=== PATIENT | female | born 1955 | race Caucasian/White ===

== ENCOUNTER 2022-08-16 08:08 | Day surgery (SDC) | payer OTHER, SELFPAY ==
[2022-08-07 13:35] VITALS: BMI 38.2
[2022-08-16] VITALS (18 sets, daily range): BP systolic 122–157; BP diastolic 64–92; PULSE 73–93; RESP 12–17; TEMP 36.1–37.2; O2SAT 92–100; BMI 38.2
--- NOTE | 2022-08-16 06:00 | DI.RAD.S_ITS ---
PROCEDURE: XR KNEE RT 1TO2V INDICATIONS: Postop TECHNIQUE: 2 view(s) of the knee acquired. COMPARISON: [facility] MANJIT Mendoza, XR KNEE ARTHRITIC SERIES BI, 06/19/2022, 11:23. FINDINGS: Bones: Patient is status post knee joint arthroplasty. Hardware components are in expected positions. Visualized bony structures are intact. Soft tissues: Overlying postoperative changes are noted. IMPRESSION: Expected postsurgical changes. Dictated by: Miguel Isidro M.D. on 08/16/2022 at 14:07 Approved by: Miguel Isidro M.D. on 08/16/2022 at 14:08
[2022-08-16] MEDS: ACETAMINOPHEN 325 MG TABLET 975 MG PO (09:05)
[2022-08-16] MEDS: CELECOXIB 200 MG CAPSULE PO (09:07)
[2022-08-16] MEDS: PREGABALIN 75 MG CAPSULE PO (09:07)
[2022-08-16 09:23] LABS: COVID19 -Nasal RAPID Negative (Negative)
[2022-08-16] MEDS: LACTATED RINGERS 1,000 ML 42 ML IV (09:55)
--- NOTE | 2022-08-16 10:02 | PM.PREOP ---
Pre-operative Note Interval Note History & Physical reviewed/Exam performed by Physician: Yes Changes to H&P: No
[2022-08-16] MEDS: CEFAZOLIN 2 GM/100 ML PREMIX 100 ML IV ×2 (10:45→18:52)
[2022-08-16] MEDS: TRANEXAMIC ACID 1,000 MG VIAL 1000 MG INJ ×2 (10:50→12:00)
[2022-08-16] MEDS: BUPIVACAINE LIPOSOME 266 MG/20 ML VIAL INJ (11:04)
[2022-08-16] MEDS: BUPIVACAINE 0.25% (PF) 60 ML, EPINEPHrine 0.3 MG INJ (11:05)
[2022-08-16] MEDS: MORPHINE 4 MG/ML INJ INJ (11:05)
--- NOTE | 2022-08-16 11:12 | SUR.OPER ---
Supine on padded OR bed. Pillow under head, arms secured on padded armboards <90 degree abduction. Safety belt across torso. Non-operative leg secured with tape over blanket over lower leg. Operative leg secured in DeMayo/Osmin/Nathe positioner. Foam padded brace at thigh of operative leg.
--- NOTE | 2022-08-16 12:19 | P.OP_ITS ---
Operative Date/Time/Diagnoses Date of procedure: 08/16/22 Time of procedure: 12:19 Pre-op diagnosis: Right knee osteoarthritis Post-op diagnosis: same Procedure & Clinicians Procedure: Right total knee replacement Same procedure as scheduled: Yes Indications: The patient has had progressively worsening right knee pain with radiographic changes consistent with arthritis. Non-operative management has failed and the patient has requested total knee replacement. The risks, benefits and alternatives to surgery were discussed with the patient prior to proceeding. Risks discussed included, but were not limited to, failure to relieve pain, stiffness, infection, nerve damage, deep venous thrombosis, pulmonary embolism, stroke, coma, heart attack, permanent paralysis and , as well as the potential need for eventual revision of the prosthetic. Surgeon: Syd Aldridge Business Services Officer: Mirian Arteaga Click Yes if Unassisted: No Anesthesia Type: General, Spinal and Local Operative Notes Findings: Severe tricompartmental osteoarthritis. Closure Type: primary Specimen(s): none sent Prosthetic devices, grafts, tissues, transplants, or devices: Implants used in this procedure were manufactured by the [employer] and [employer] and included the BCS II Journey total knee replacement with a size 4 Oxinium femur, a size 3 non porous tibial base plate, a 10 mm cross-linked polyethylene insert and a 32 mm oval Ellen II patella. Applied: implant(s) Estimated Blood Loss (mL): 50 Blood products transfused: none Tourniquet time (min): 53 Procedure in detail: The patient was seen in the pre-operative area, where the patient identified the right knee as the operative site and this was marked with my initials. The patient received pre-operative antibiotics, and was taken to the operating room and placed on the operative table in the supine position. After satisfactory anesthesia, a full stack software developer out was performed. The right leg was encircled with a tourniquet about the proximal thigh, and the leg was prepared from the toes to the tourniquet with ChloroPrep in the usual fashion and draped through sterile drapes. The leg was elevated and exsanguinated with Eschmark bandage and the tourniquet inflated to 250 mmHg pressure. The knee was approached through an approximately 18 cm incision centered over the patella and carried into the knee through a medial parapatellar arthrotomy. The anterior osteophytes and soft tissues were removed. The rotational landmarks of Xiomara's line and the transepicondylar axis were marked on the femur with electrocautery, and intramedullary guide holes for the femur and tibia were created. The distal femoral cut was made in 6 degrees of valgus using the intramedullary guide at the primary cut setting. The proximal tibial cut was then made using the intramedullary guide, taking 9 mm of bone off the less involved side. The extension gap was checked and the rotation of the femoral c omponent confirmed with the gap balancing system. The anterior, posterior and chamfer cuts were then made. The posterior osteophytes and soft tissues were then removed. The posterior capsule was injected with part of a mixture of 60 ml 0.25% Marcaine mixed with 20 ml Exparel and 4 mg of morphine for post-operative pain control. The remainder of this mixture was injected into the capsule and subcutaneous tissues during cement curing. The tibia was prepared with the rotation set by an extra medullary guide. Trial tibial and femoral components were then placed and the intercondylar notch cut through the femoral trial. Range of motion was 0-135 degrees, with good stability throughout the range. The patella was then cut to accommodate the patellar prosthetic. There was no need for a lateral release. The trials were then removed, and the femoral hole plugged with a bone plug. The bone was prepared with pulsatile lavage, and dried with a sponge. Cement was applied and the final prosthetics placed. Excess cement was removed during and after cement curing. After confirming there was no extruded cement posteriorly, the final tibial insert was placed. The knee was copiously irrigated and the tourniquet deflated. Hemostasis was obtained. The capsule was closed with interrupted # 2 polyester suture. The subcutaneous layer was closed with 3-0 Vicryl, and the skin with a running 3-0 V-Lock suture and Dermabond. A Derrek dressing was applied and the patient was taken to recovery having tolerated the procedure well. The services of a skilled promotions assistant were required during the surgery to provide positioning, exposure and retraction to protect vital structures. Without the services of Ms. Arteaga, the procedure could not have been completed in a safe, expedient fashion. Complications: none Post-operative Condition: stable Disposition: PACU Plan for aftercare: The patient will be maintained on a standard total knee replacement protocol with weight bearing as tolerated. The patient will receive aspirin and sequential compression devices for DVT prophylaxis. The patient will be discharged home when safe for the home environment.
[2022-08-16] MEDS: OXYCODONE IR 5 MG TABLET PO ×3 (13:00→21:59)
[2022-08-16] MEDS: hydrOXYzine pamoate 25 MG CAPSULE PO (13:00)
--- NOTE | 2022-08-16 13:43 | SUR.PHASEI ---
Called for reprot 13:09. Nurse unavailable. Asked to call back in 30 mins. Given report at 12:39 to JIN Galaviz. Pt ready for transfer. Bed not ready.
--- NOTE | 2022-08-16 14:37 | PC.NURSE ---
Pt arrived to the unit at 1428, VSS, A&Ox4, oriented to the room and call ruiz. CSM intact at bilaterally in feet and ankles, good cap refill less than 2 seconds and strong pulses, pt is unable to lift her R leg at this time and sensation is intact, unable to dressing at this time due to dressing covered by HINA wrap. Pt is resting comfortably.
[2022-08-16] MEDS: LACTATED RINGERS 1,000 ML 100 ML IV (14:48)
[2022-08-16] MEDS: OXYCODONE IR 10 MG TABLET PO ×2 (15:50→18:52)
[2022-08-16] MEDS: ACETAMINOPHEN 325 MG TABLET 650 MG PO (17:58)
[2022-08-16] MEDS: ONDANSETRON 4 MG/2 ML INJ IV (17:59)
[2022-08-16] MEDS: ASPIRIN EC 81 MG TABLET PO (21:56)
[2022-08-16] MEDS: DOCUSATE 100 MG CAPSULE PO (21:57)
[2022-08-17] MEDS: ACETAMINOPHEN 325 MG TABLET 650 MG PO ×3 (00:21→11:41)
[2022-08-17 02:00] VITALS: BP 107/57; PULSE 92; RESP 15; TEMP 37.1; O2SAT 90
[2022-08-17] MEDS: CEFAZOLIN 2 GM/100 ML PREMIX 100 ML IV (03:29)
[2022-08-17 06:22] VITALS: BP 124/65; PULSE 80; RESP 17; TEMP 36.8; O2SAT 94
[2022-08-17 06:27] LABS: Hematocrit 30.2 % (36-46); Hemoglobin 10.2 g/dL (12.0-16.0)
[2022-08-17] MEDS: OXYCODONE IR 5 MG TABLET PO (08:35)
[2022-08-17 08:36] VITALS: BP 130/65; PULSE 85
[2022-08-17] MEDS: LOSARTAN 25 MG TABLET PO (08:36)
[2022-08-17] MEDS: MELOXICAM 7.5 MG TABLET PO (08:36)
[2022-08-17] MEDS: ASPIRIN EC 81 MG TABLET PO (08:37)
[2022-08-17] MEDS: polyethylene glycoL 3350 17 GM POWD.PACK PO (08:37)
[2022-08-17] MEDS: DOCUSATE 100 MG CAPSULE PO (08:37)
[2022-08-17 08:41] VITALS: BP 130/65; PULSE 85; RESP 18; TEMP 36.6; O2SAT 95
--- NOTE | 2022-08-17 08:48 | P.DS_ITS ---
History of Present Illness History of Present Illness Date Patient Seen: 08/17/22 Time Patient Seen: 08:48 Chief complaint: Knee pain Narrative: The pain has been [id number]. Denies fever or chills. No nausea vomiting. Patient has assistance at home. Discharge Providers Provider Discharge Date: 08/17/22 Primary care physician: GENNY Villela Consults: 08/16/22 14:22 Consult to Discharge Planning Routine Comment: Consult to Physical Therapy Evaluate & Treat Comment: Physician Instructions: postop TKA protocol Discharge provider: Cliff Pascal PA-C Summary Hospital Course Discharge Diagnosis: Right knee osteoarthritis Hospital Course: Right total knee replacement Same procedure as scheduled: Yes Indications: The patient has had progressively worsening right knee pain with radiographic changes consistent with arthritis. Non-operative management has failed and the patient has requested total knee replacement. The risks, benefits and altern atives to surgery were discussed with the patient prior to proceeding. Risks discussed included, but were not limited to, failure to relieve pain, stiffness, infection, nerve damage, deep venous thrombosis, pulmonary embolism, stroke, coma, heart attack, permanent paralysis and , as well as the potential need for eventual revision of the prosthetic. Surgeon: Syd Aldridge Repair Department Manager: Mirian Arteaga Click Yes if Unassisted: No Anesthesia Type: General, Spinal and Local Operative Notes Findings: Severe tricompartmental osteoarthritis. Closure Type: primary Specimen(s): none sent Prosthetic devices, grafts, tissues, transplants, or devices: Implants used in this procedure were manufactured by the [employer] and [employer] and included the BCS II Journey total knee replacement with a size 4 Oxinium femur, a size 3 non porous tibial base plate, a 10 mm cross-linked polyethylene insert and a 32 mm oval Ellen II patella. Applied: implant(s) Estimated Blood Loss (mL): 50 Blood products transfused: none Tourniquet time (min): 53 Patient admitted to the hospital for right total knee replacement. Patient consented to the same. Patient taken operating room underwent right total knee arthroplasty on August 16, 2022. Patient back in her room recovering well as in stable condition. Patient will be discharged home today after physical therapy if safe for home environment. Status at Discharge Cognitive/behavioral status at discharge: at baseline, oriented Functional status at discharge: uses cane/walker Overall status at discharge: patient is progressing back to baseline Exam Vital Signs (past 8 hours): - 08/17/22 02:00 08/17/22 06:22 08/17/22 08:36 Temperature 98.8 F 98.3 F Pulse Rate 92 H 80 85 Respiratory Rate 15 17 Blood Pressure 107/57 L 124/65 130/65 Pulse Oximetry 90 L 94 Oxygen Flow Rate 0 0 08/17/22 08:41 Temperature 97.9 F Pulse Rate 85 Respiratory Rate 18 Blood Pressure 130/65 Pulse Oximetry 95 Oxygen Flow Rate 0 Oxygen Delivery Method Room Air Oxygen Flow Rate 0 Narrative Exam Narrative: 67-year-old female resting comfortably in bed in no apparent distress. Derrek dressing is on and functioning. Dressing is clean, dry and intact. Motor functions intact bilateral lower extremities. Sensation grossly intact to light touch bilateral lower extremities. Const General: healthy appearing and comfortable Nutritional Appearance: well nourished Orientation: alert Resp Effort & Inspection: normal respiratory effort and able to speak in complete sentences Objective Labs 08/17/22 05:55 Labs: Laboratory Results - last 24 hr 08/16/22 08/17/22 08:45 05:55 Hgb 10.2 L Hct 30.2 L SARS-CoV-2 (PCR) Negative PENDING SALE TO [facility] Medical History Acid reflux COVID-19 virus infection (~2020) HTN (hypertension) Osteoarthritis Osteoporosis Sensitive skin Varicose vein of leg Surgical History Hx of removal of cyst Social History household members: spouse Smoking Status: Former smoker alcohol intake: never Discharge Assessment & Plan Assessment and Plan Assessment: Patient progressing as expected status post right total knee replacement Plan of Treatment: Weight-bearing as tolerated Patient will be maintained on a standard total knee replacement protocol Multimodal pain management Discharge home today after physical therapy if safe for home environment. Discharge Plan Discharge Plan Patient Disposition: Home Discharge orders & Medications Discharge Orders: Discharge (Order); Ordered 08/17/22 Ordered By: Cliff Pascal Prescriptions: New acetaminophen 325 mg Tablet 650 mg PO Q6HR Qty: 60 0RF aspirin 81 mg Tablet,Delayed Release (Dr/Ec) 81 mg PO BID Qty: 60 0RF meloxicam 7.5 mg Tablet 7.5 mg PO DAILY Qty: 30 0RF docusate sodium 100 mg Capsule 100 mg PO BID Qty: 20 0RF oxycodone 5 mg Tablet 5 mg PO Q3HR PRN (Reason: Pain, Moderate (4-6)) Qty: 40 0RF Continued meloxicam 7.5 mg Tablet 7.5 mg PO DAILY Patient Comments: Pt has not started this med yet losartan 25 mg Tablet 25 mg PO DAILY Follow up/Referrals: Charleen Taveras ARNP [Primary Care Provider] - Syd Aldridge MD [Physician] - As previously scheduled (10-14 days for postoperative visit) Diet/Activity/Treatments Diet: Diet as Tolerated Other treatments: Dressing/Wound care: -Remove the Mikey wrap 48 hours after surgery. -Keep Derrek dressing in place until postoperative follow-up office visit. The Derrek battery/pump should last for 7 days from surgery. Once the pump stops, please cut off hose at base of dressing and cover with a bandaid/part of a dressing from Derrek package. The monitor can be thrown away and recycle the batteries. Leave the remaining dressing in place. -Derrek info: The Derrek dressing provides suction known as negative pressure wound therapy, which draws out excess fluid from the wound and protects the incision. It also helps to prevent bacteria from entering the wound or incision. -Okay to shower. Keep wound out of direct water stream. No soaking or submerging until all the scabs fall off (approximately 4-6 weeks). -No lotions, ointments, or scar creams directly to the incision until the wound is healed (4-6 weeks). No soaking or submerging until all the scabs are gone (usually 4-6 weeks). -Bruising is relatively normal and can show up 1-10 days after surgery, and can travel down to your foot or ankle. This is expected after surgery, but can be painful. -Please call the office if dressing becomes wet, soiled, or saturated. Activities: -Weight-bearing as tolerated. Use front wheeled walker, and progress to cane when safe. -Walk frequently: approximately 5-10 minutes every hour. -Continue with home exercises as directed by your physical therapist. -Elevate ?toes above the nose if you have significant swelling in your lower leg. (A wedge pillow is easiest.) -Ice your incision as needed for pain/inflammation/swelling. Protect your skin with a folded pillowcase. -Incentive Spirometer (breathing device from hospital): 5-10xs every hour while awake for the first 1-2 weeks. Follow-up: -Follow-up with your surgeon or PA in the office in 10-14 days after surgery. -Follow-up with your surgeon 6 weeks postoperatively. Call the office if you have chest pain, shortness of breath, significant swelling that will not resolve with elevating, fever over 101?, significantly worsening pain, or are concerned you might need to go to the Emergency Room. [facility]: [phone] Skin/Wound/Dressing Care Report to your healthcare provider any signs of infection, such as:: chills, fever, night sweats, unusual drainage and unusual redness Visit Report/Discharge Packet Instructions: DI for Knee Replacement Stand Alone Forms: Patient Portal/API, Surgery Discharge Discharge Data Primary Care Provider: Charleen Taveras Attending Provider: Syd Aldridge Quality VTE Deep Vein Thrombosis/Pulmonary Embolism Present on Admission: No
--- NOTE | 2022-08-17 11:31 | CM.DANOTE ---
Patient is a 67 yo female who was admitted on 08/16/22 for RTKA. Pt has REG PPO for insurance and her PCP is Charleen Taveras. EMR was reviewed. Per Ortho PA, pt tolerated procedure well and pain seems managed and to work with PT this morning and then likely d/c home later today. PT pending for likely 1030. SW met bedside with pt and her brother and explained role and pt confirms she lives in [facility] with her spouse who she is the caregiver for but they currently have hired two caregivers to assist while pt recovering from surgery. Pt is typically independent with ADL's, does not use DME for ambulation, and denies any hx of HH or SNF for herself but states that spouse has had [facility] in the past and feels they are helpful. Pt states she is set up with outpt PT through [facility] outpt and has first session this next week. Brother confirms he plans to provide transport home and can assist as needed as well. Pt and brother do not anticipate any needs at d/c but awaiting PT eval to confirm. Plan: SW to follow after PT eval and recommendations towards confirming safe plan of home via brother POV and outpt PT and any further identified discharge planning needs. GYPSY Jackson Discharge Planning/Care Management CM Discharge Assessment Start: 08/17/22 11:23 Freq: Status: Active Protocol: Document 08/17/22 11:24 BF (Rec: 08/17/22 11:28 [id number]) Discharge Planning Assessment Assigned Party Host/Hostess GYPSY Jenkins DPOA/Assigned Designee Name spouse and brother Advance Directives? Yes Advance Directives on File No History Provided By Patient,Family Member,Medical Record Has Patient been admitted in last 30 No days? Prior Living Arrangements House Household Members spouse Type of transporation used prior to Drives own vehicle admit Independent with ADL's Yes Is patient alert and oriented? Yes Caregiver for Another Yes: spouse Community Services used prior to Physical Therapy admission: DME Already Rented / Owned FWW / Walker Patient/Family Preference OP PT Therapy Barriers to Discharge No Discharge Plan Home Community Services Physical Therapy Transportation Arrangement Brother to provide transport Referrals Initiated None needed Whiteboard Updated in Patient Room with Yes name and ext. # of Party Host/Hostess Review Status In Process Please Provide Date Initial DC 08/17/22 Assessment Was Performed Next Review Type Continued Stay Review Pre-Anesthesia Assessment Start: 08/07/22 13:35 Freq: Status: Active Protocol: Document 08/07/22 13:35 CAB (Rec: 08/07/22 14:24 CAB [id number]) Pre-Anesthesia Assessment Patient Information Reviewed Via Phone Assessment Assessment Completed With Patient Comment Labs/EKG done per pt, not here Primary Care Provider Charleen Taveras Seen Specialist in Last 12 Months Yes Specialist Seen Orthopedist Primary Language Mongolian Physician Asst Required No Height 155.58 cm Weight 92.533 kg Body Mass Index (BMI) 38.2 Hearing Ability Normal Visual Assist Glasses Dentition Type Teeth, Natural Present Barriers to Learning None Hx Anesthesia Reactions No Hx Family Anesthesia Reaction No Hx Malignant Hyperthermia No Hx Blood Transfusions No Anesthesia Review Requested No 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 No Does patient have MARINELLI/SOB No Hx Sleep Apnea No Currently Taking a Beta Jass No Can You Climb a Flight of Stairs Without Yes SOB Hx Chest Pain No Hx SOB No Hx Syncope or Dizziness No Anti-Coagulant Therapy No Has a Customs Guard No Cardiac Testing No Hx Pacemaker/ICD No Pacemaker Rep Required? No Diet Type At Home Regular Dysphagia No Gastrointestinal Symptoms Reflux Chronic UTI No Urinary Catheter Present No Hx Urinary Self Catheterization No Diabetes No Patient No Lactating No Hx Drug Resistant Organism No Presence of External or Internal Medical No Devices Have you had any close contact with No someone diagnosed with COVID-19? Received a COVID vaccine? Yes Received all doses? Yes Marital Status Lives With spouse Current Living Arrangements House Number of Floors (Floors) One Floor Support System Sibling(s),Spouse Does the Patient Have Assistance After Yes: Brother will also assist Surgery with care at [place] Patient Discharge Plan Description Return Home Comment Pt advised 1-3 day length of stay per surgeon Feels Safe in Current Environment Yes Been Physically Hurt or Threatened By a No Person in Current Environment Do you have thoughts of harming yourself None or others? Are you currently considering suicide? No Do you have a plan to hurt yourself or No Plan others? Do You Have Any Spiritual Beliefs That No May Affect Your HC Choices? Do You Have Any Cultural Practices That No May Affect Your HC Choices? Comment Yazidism Who Can We Speak to About Patient's Care Family, friends Identifying Code for Release of Patient Declines to issue Information Health Care Proxy/Next of Kin Gonzalo Cruzson) Sim (sandy) Health Care Proxy Phone Number Gonzalo: [phone] Sim: [phone] Emergency Contact Name Gonzalo Cruzson) Sim (son) Emergency Contact Phone Number Gonzalo: [phone] Sim: [phone] Advance Directives? Yes Advance Directives on File No Requested Patient Bring Advanced Yes Directives DOS Power of Hose Tester Yes Power of Hose Tester Name Gonzalo Cruzson) Sim (sandy) Power of Hose Tester Phone Number Gonzalo: [phone] Sim: [phone] PAC Instructions Do not shave/clip surgical site,Durable medical equipment ,Medications to take/avoid, Nasal antibiotic,No ETOH/ petroleum product on skin DOS, NPO,Pre-surgical wash,Sturdy shoes/comfortable clothes,Do not bring valuables and remove jewelry
--- NOTE | 2022-08-17 12:57 | PT.IIE ---
Current Diagnoses Unilateral primary osteoarthritis, right knee (08/16/22) Surgery Performed Operation Date: 08/16/22 10:15 Actual Procedures p Total Knee Arthroplasty(Right) - Syd Aldridge MD Surgical History (Last Reviewed 08/17/22 @ 08:50 by Cliff Pascal PA-C) Hx of removal of cyst Medical History (Last Reviewed 08/17/22 @ 08:50 by Cliff Pascal PA-C) Acid reflux COVID-19 virus infection (~2020) HTN (hypertension) Osteoarthritis Osteoporosis Sensitive skin Varicose vein of leg Physical Therapy Inpatient Evaluation/Re-Eval M1 PT/OT-IP Prior Functional Status Start: 08/17/22 07:32 Freq: NEEDED Status: Discharge Protocol: Document 08/17/22 12:49 SAK (Rec: 08/17/22 12:57 [facility] [id number]) Medical Review Prior Functional Status Medical History Reviewed Yes Diet/Fluid Consistency Regular Communication A and O x 4 Mobility and Gait modifiedindependent Activities of Daily Living and IADL's modified indep Social History Household Members spouse Living Arrangements House Number of Floors (Floors) One Floor Number of Stairs To Enter/Railing? ramp Home Environment Standard Height Toilet,Walk in Shower,Ramp Home Equipment Front Wheel Walker,Bedside Commode,Hand Held Shower Employment Status Manager Medical Employed Additional Social History Comment has 6 weeks off M2 PT-IP Current Condition Start: 08/17/22 07:32 Freq: NEEDED Status: Discharge Protocol: Document 08/17/22 12:49 SAK (Rec: 08/17/22 12:57 [facility] [id number]) Physical Therapy Current Condition Current Condition Evaluation Date 08/17/22 Treatment Diagnosis s/p right TKA Onset Date 08/16/22 M3 PT-IP Subjective Start: 08/17/22 07:32 Freq: NEEDED Status: Discharge Protocol: Document 08/17/22 12:49 SAK (Rec: 08/17/22 12:57 [facility] [id number]) Subjective Physical Therapy Visit Type Type Initial Evaluation Visit Start Time 10:35 Visit Stop Time 11:10 Total Visit Minutes 35 Physical Therapy Visit Comments Patient Comments willing to work with PT. Hoping to go home today. Brother in room, disabled but has caregiver. Brother and sons will be helping patient at home Patient Goals be discharged home Therapy Pain Assessment Pain When Pain Assessed During Mobility Pain Present Pain Present Pain Reported FLACC Pain Scale Face Occasional grimace/frown Location Right Knee Intensity 5 M4 PT-IP Mobility and Gait Start: 08/17/22 07:32 Freq: NEEDED Status: Discharge Protocol: Document 08/17/22 12:49 [facility] (Rec: 08/17/22 12:57 [facility] [id number]) PT-Transfer Assessment Sit to and From Stand Sit to and from Stand Contact Guard Assistance Equipment Transfer Assistive Device Gait Belt,Front Wheeled Walker Orthotic/Prosthetic Devices or Brace: No Transfers Transfer Technique sit to stand from chair, patient preference was chair after PT Transfer Ability Level of Assist Standby Assistance,Contact Guard Assistance Comments Mobility Comments cues for placement of hands and right LE Gait Assessment Gait Gait Assistance Required: Contact Guard Assist Distance (Feet) 40 Able to Maintain Weight Bearing Status Yes During Gait Assistive Devices Assistive Device Front Wheeled Walker Gait Deviations General Gait Pattern Antalgic Factors Limiting Gait Function Factors Limiting Gait Function Decreased Strength,Pain Stair Climbing Assessment Comments Stair Climbing Comments no stairs at home PT-Balance Assessment Sitting Balance and Reactions Static Sitting Balance Ability Good Dynamic Sitting Balance Ability Good Standing Balance and Reactions Static Standing Balance Ability Good Dynamic Standing Balance Ability Fair M5 PT-IP Objective Assessments Start: 08/17/22 07:32 Freq: NEEDED Status: Discharge Protocol: Document 08/17/22 12:49 [facility] (Rec: 08/17/22 12:57 [facility] [id number]) Orientation Orientation/Cognition Level of Alertness Alert Orientation Name,Age,Place,Situation Safety Awareness Understands Safety Issues Memory Description No Deficits Noted Gross Range of Motion Upper Extremity ROM Assessment Within Functional Limits Lower Extremity ROM Assessment Within Functional Limits Strength Upper Extremity Strength Assessment Within Functional Limits Comments Strength Comments mod assist SLR, min assist SAQ Coordination Assessment Gross Coordination Gross Coordination WNL Sensation Assessment Sensation Gross Sensation Right LE Impaired Sensation Description Pain M6 PT-IP Treatment Start: 08/17/22 07:32 Freq: NEEDED Status: Discharge Protocol: Document 08/17/22 12:49 [facility] (Rec: 08/17/22 12:57 [facility] [id number]) Physical Therapy Treatment Exercises Exercises Ankle Pumps,Quad Sets,Heel Slides,Straight Leg Raises, Short Arc Quads,Passive Knee Extension Hang,Seated Knee Flexion/Extension Education Education Provided Precautions,Weight Bearing Status,Post-Op Packet,Safety M7 PT-IP Assessment and Plan Start: 08/17/22 07:32 Freq: NEEDED Status: Discharge Protocol: Document 08/17/22 12:49 FABIAN (Rec: 08/17/22 12:57 [facility] [id number]) PT Summary Assessment and Plan Potential Rehabilitation Potential Good Status of Condition at Evaluation Evolving Summary Impairments Pain,ROM,Strength,Bed Mobility ,Transfers,Gait,Activity Tolerance Assessment Summary Patient s/p right TKA with typical post-op limitations in ROM and strength, gait and mobility skills. SBA to CGA for all mobility done this am. Has no stairs in the home and has ramp to enter. Brother present in room and has had prior TKA x 2; he and patient sons will both be available to assist in the home. Goals Other Goals NA, patient cleared for discharge home with assist of family Frequency of Treatment Frequency Of Treatment Discharge Weight Bearing Status Weight Bearing Status Weight Bear as Tolerated Recommendations To Nursing Amount of Assist Needed 1 Person Assist Discharge Recommendations PT Discharge Recommendations Home with Assistance, Outpatient PT Other Discharge Recommendations outpatient PT already scheduled Transportation Needs at Discharge Private Vehicle
== END 2022-08-17 12:15 | disposition home or self-care (01) ==
LOC: OR 12:36 → AC 12:36
PROVIDERS: PCP Nurse Practitioner Family; Referring Provider Orthopaedic Surgery; Visit Provider Orthopaedic Surgery
PROC: 0SRC0JZ Replacement of Right Knee Joint with Synthetic Substitute, Open Approach (ICD-10-PCS; CPT 27447; principal; 2022-08-16 10:15)
DX: M17.11 Unilateral primary osteoarthritis, right knee (principal); Z20.822 Contact with and (suspected) exposure to COVID-19
CPT/HCPCS: 27447; 36415; 73560; 85014; 85018; 87635; 97110; 97162; C1776; C9803; C1713; C9290; J0171; J0690; J1100; J2250; J2270; J2405; J2704; J3010

== ENCOUNTER 2023-05-18 05:53 | Day surgery (SDC) | payer OTHER, SELFPAY ==
[2022-08-16 14:26] VITALS: BMI 38.2
[2023-05-07 10:00] VITALS: BMI 37.2
[2023-05-18] VITALS (14 sets, daily range): BP systolic 127–162; BP diastolic 77–96; PULSE 72–108; RESP 16–20; TEMP 36.1–36.6; O2SAT 94–100; BMI 37.2
--- NOTE | 2023-05-18 06:00 | DI.RAD.S_ITS ---
PROCEDURE: XR KNEE LT 1TO2V INDICATIONS: TKA TECHNIQUE: 2 view(s) of the knee acquired. COMPARISON: [facility], CR, XR KNEE RT 1TO2V, 08/16/2022, 12:37. FINDINGS: Bones: Patient is status post knee joint arthroplasty. Hardware components are in expected positions. Visualized bony structures are intact. Soft tissues: Overlying postoperative changes are noted. IMPRESSION: Expected post-operative appearance of a knee arthroplasty. Dictated by: Janae Parker M.D. on 05/18/2023 at 10:56 Approved by: Janae Parker M.D. on 05/18/2023 at 10:56
[2023-05-18] MEDS: ACETAMINOPHEN 325 MG TABLET 975 MG PO (06:53)
[2023-05-18] MEDS: MELOXICAM 7.5 MG TABLET PO (06:54)
[2023-05-18] MEDS: LACTATED RINGERS 1,000 ML 42 ML IV ×2 (07:00→09:53)
--- NOTE | 2023-05-18 07:34 | PM.PREOP ---
Pre-operative Note Interval Note History & Physical reviewed/Exam performed by Physician: Yes Changes to H&P: No
[2023-05-18] MEDS: CEFAZOLIN 2 GM/100 ML PREMIX 100 ML IV ×2 (07:59→15:17)
[2023-05-18] MEDS: TRANEXAMIC ACID 1,000 MG VIAL 1000 MG INJ ×2 (08:02→09:39)
--- NOTE | 2023-05-18 08:21 | SUR.OPER ---
Supine on padded OR bed. Pillow under head, arms secured on padded armboards <90 degree abduction. Safety belt across torso. Non-operative leg secured with tape over blanket over lower leg. Operative leg secured on padded foam roll positioner. Foam padded brace at thigh of operative leg.
[2023-05-18] MEDS: ROPIVACAINE/EPI/CLONIDINE/KET 50 ML SYRINGE INJ (08:53)
[2023-05-18] MEDS: SODIUM CHLORIDE IRRIG SOLUTION 250 ML, POVIDONE-IODINE SPONGE STICKS 1 APPLIC IRR (09:35)
[2023-05-18] MEDS: HYDROGEN PEROXIDE 473 ML SOLUTION 120 ML TOP (09:35)
--- NOTE | 2023-05-18 10:31 | P.OP_ITS ---
Operative Date/Time/Diagnoses Date of procedure: 05/18/23 Pre-op diagnosis: Left knee arthritis Post-op diagnosis: same Procedure & Clinicians Procedure: Left total knee arthroplasty (CPT 82285) Same procedure as scheduled: Yes Surgeon: Russ Ramirez Distance Learning Unit Leader: Anais Davis Anesthesia Type: Spinal, Peripheral nerve block and Local Operative Notes Estimated Blood Loss (mL): 150 Tourniquet time (min): 75 Procedure in detail: Implants: [place]ion Persona [Medial Congruent] Total Knee Arthroplasty: - Size 6 narrow Cruciate Retaining Femoral Component - Size D Tibial Component with 14 mm x 30 mm stem extension - Size 14 [Medial Congruent] Polyethylene Insert - 32 mm Patella This patient was evaluated for knee pain which caused significant impairment in activities of daily living and correlated to degenerative changes in the knee. These symptoms were refractory to extensive attempts at nonoperative management. Risks and benefits of operative versus nonoperative management were discussed at length and the patient wished to proceed with operative management. The patient was met in the preoperative holding area. All questions were answered. The operative site was marked. Informed consent was signed. The patient was brought back to the operating room and anesthesia was induced. After being transferred to the operating table, the operative extremity was prepped and draped in the usual sterile fashion. A time-out procedure was performed. The assistance of a physician nutritional assistant was required throughout the case for soft tissue retraction, positioning, wound closure, room set up. Without the assistance of a skilled practitioner the surgery would have taken significantly longer. The tourniquet was inflated and a medial parapatellar approach to the knee was utilized. Flaps were elevated and the arthrotomy was marked to guide closure at the conclusion of the procedure. A medial release was performed off of the tibial joint line. Soft tissue was released from behind the patellar tendon to clear the lateral side of the tibia. The knee was brought into flexion and an opening reamer was used to open the canal. An intramedullary guide was introduced. A 5 degree resection with a +1 cut had been planned based off of the preoperative imaging and assessment of the patient's preoperative passive knee extension. This was resected. The knee was hyperflexed and externally rotated to allow access to the cruciates. These were resected. Retractors were placed on the medial, posterior and lateral tibia and additional resection at the base of the PCL was used to allow the tibia to sublux anteriorly providing access to the tibia. A opening reamer was used to open up the tibial canal beginning at the ACL insertion. An intramedullary alis was introduced down the diaphysis and a +4 cut was planned off of the medial side of the tibia. This was performed and the knee was brought back to full extension. A 12 mm spacer block allowed the knee to come into full extension. A force gauge screw dedicated truck driver was used on the fusion tensioner and the knee was noted to be well balanced without any soft tissue releases. The knee was brought into flexion and the force gauge screwdriver was used to apply 30 pounds of force which balanced the rotation at 3 degrees. I pinned this in the 12 mm hole and sized using a measured resection sizer. After placing the corresponding 4-in-1 block I again checked the balance of the knee at 90 degrees of flexion with the Fuzion tensioner and found it to be satisfactory. I checked the notch point with an enrique wing. Being satisfied with the position of my 4 in 1 block both in terms of gap symmetry and gap balance I performed the 4 in 1 cuts while protecting the soft tissues with soft tissue retractors. The four in 1 block was removed and corresponding trials were placed including a floating tibia. The knee achieved full extension, had minimal opening with either medial or lateral stress, had good passive knee flexion which allowed the heel to rest on the patient's buttock, had good patellar tracking, and had minimal lift-off with external and internal rotation at 90? of flexion. Being satisfied with this trial I planned to move forward with cementation. The tibia and femur were irrigated and dried. Portions of chamfer cuts were used as cement restrictors in the femur and tibia. The tibia was sized and prepped while cement was mixed. The cement was placed down the canal and pressurized into the cut tibial surface. The tibial component was covered in cement and placed in the canal as it was guided in by the keel punch. Cement was removed from around the tibial component and a second round of impaction was performed with a second round of cement removal. The knee was flexed and the tibia was reduced underneath the femur. Cement was placed on the femur and the femoral component was impacted into place. Excess cement was removed from around the femur. A trial insert was used for the cement curing process. The cement was allowed to cure while the knee remained in full extension with pressure on the heel. A 32 mm patellar insert was cemented in place. The soft tissues were bathed in a dilute mixture of Betadine and peroxide. The cement was allowed to fully cure and the polyethylene trial was removed. The posterior knee was inspected for excess cement and some was removed. The knee was again trialed and I elected to move forward with implantation of a 14 mm medial congruent polyethylene. The correspond polyethylene implant was inserted. The tourniquet was taken down. Hemostasis was achieved. A dilute mixture of ropivacaine epinephrine clonidine and ketorolac was injected throughout the wound including the MCL, posterior capsule on the medial side only, VMO, medial femoral periosteum, lateral femoral periosteum, patellar tendo n and adductor canal to provide a low adductor canal block. The wound was closed using a combination of Vicryl Stratafix and Monocryl sutures. Dermabond was applied. A soft dressing was applied. The knee was wrapped in an Mikey wrap and ice was applied prior to the patient leaving operating room. The patient was transferred off of the operating table and taken to the PACU. Plan for aftercare: - Transfer to floor following recovery in PACU - Transition from hospital gown to regular clothing immediately upon arrival on floor - Weightbearing as tolerated - Mobilization as soon as the patient has recovered from anesthesia - [Aspirin 81 twice per day] for DVT prophylaxis - Multimodal pain regimen with no IV opioids ordered - Anticipate mobilization with physical therapy today and discharge home either later today or tomorrow morning - Follow up at [facility] in 2 weeks
[2023-05-18] MEDS: LACTATED RINGERS 1,000 ML 100 ML IV (11:45)
[2023-05-18] MEDS: IBUPROFEN 600 MG TABLET PO ×3 (12:46→22:39)
[2023-05-18] MEDS: ACETAMINOPHEN 325 MG TABLET 650 MG PO ×3 (12:47→22:39)
--- NOTE | 2023-05-18 14:53 | PT.IIE ---
Current Diagnoses Unilateral primary osteoarthritis, left knee (05/18/23) Surgery Performed Operation Date: 05/18/23 07:45 Actual Procedures p Total Knee Arthroplasty(Left) - Russ Ramirez MD Surgical History (Last Reviewed 05/18/23 @ 06:52 by Jami Woodward, RN) History of total right knee replacement (08/16/22) Hx of removal of cyst Medical History (Last Reviewed 05/18/23 @ 06:52 by Jami Woodward, RN) Acid reflux Anesthesia complication (08/16/22) COVID-19 virus infection (~2020) Diverticulosis HTN (hypertension) Osteoarthritis Osteoporosis Sensitive skin Varicose vein of leg Physical Therapy Inpatient Evaluation/Re-Eval M1 PT/OT-IP Prior Functional Status Start: 05/18/23 18:00 Freq: NEEDED Status: Active Protocol: Document 05/18/23 14:53 AB (Rec: 05/18/23 18:21 AB [id number]) Medical Review Prior Functional Status Medical History Reviewed Yes Communication able to make needs known Mobility and Gait pt stated that she was independent with all mobilties and ambulation without AD Social History Household Members spouse Living Arrangements House Number of Floors (Floors) One Floor Number of Stairs To Enter/Railing? ramp to enter Home Environment High Toilet,Walk in Shower, Ramp Home Equipment Front Wheel Walker,Bedside Commode,Shower Seat with Backrest,Hand Held Shower,Grab Bars Near Toilet,Grab Bars In Shower Additional Social History Comment pt has a hurrycane and an adjustable bed pt stated that her brother will be staying with them for ~ 2 weeks to assist M2 PT-IP Current Condition Start: 05/18/23 18:00 Freq: NEEDED Status: Active Protocol: Document 05/18/23 14:53 AB (Rec: 05/18/23 18:21 AB [id number]) Physical Therapy Current Condition Current Condition Evaluation Date 05/18/23 Treatment Diagnosis s/p L TKA; difficulty in walking Onset Date 05/18/23 M3 PT-IP Subjective Start: 05/18/23 18:00 Freq: NEEDED Status: Active Protocol: Document 05/18/23 14:53 AB (Rec: 05/18/23 18:21 AB [id number]) Subjective Physical Therapy Visit Type Type Initial Evaluation Visit Start Time 14:53 Visit Stop Time 15:35 Total Visit Minutes 42 Number of COUNTY LIBRARY DIRECTOR Visits 0 Therapy Pain Assessment Pain When Pain Assessed At Rest Pain Present Pain Present Pain Reported Location L knee Intensity 4 Scale Used increases with mobility Pain Behaviors Guarding Pain Management Techniques Apply Cold,Distraction, Modification of Treatment,Re- positioning,Timing of Activity with Medications M4 PT-IP Mobility and Gait Start: 05/18/23 18:00 Freq: NEEDED Status: Active Protocol: Document 05/18/23 14:53 AB (Rec: 05/18/23 18:21 AB [id number]) PT-Bed Mobility Assessment Supine to Sit Supine to Sit Standby Assistance,Head of Bed Elevated PT-Transfer Assessment Sit to and From Stand Sit to and from Stand Minimal Assistance,Moderate Assistance,1 Person Assistance ,Use of Upper Extremities Equipment Transfer Assistive Device Gait Belt,Front Wheeled Walker Orthotic/Prosthetic Devices or Brace: No Transfers Transfer Destination Toilet Transfer Technique ambulated Transfer Ability Level of Assist Minimal Assistance,1 Person Assistance,Use of Upper Extremities Comments Mobility Comments pt supine in bed and agreeable to do PT. BP:134/88. c/o nausea supine in bed. nurse provided pt with nausea medication. pt completed supine to sit with HOB elevated SBA. pt able to sit on EOB SBA. BP: 154/90. pt requested to use the toilet. completed sit to stand min A and max cues for techniques. pt ambulated to the toilet using FWW ~ 20 ft min A and cues for L quad contraction. pt with uncontrolle descsent to the toilet requiring mod A for safety. pt completed sit to stand from the toilet min A and requiring min A for standing balance while completing hygiene care. pt ambulated to the chair using FWW min A and cues. pt agreed to sit up on the chair. positioned on the chair. call light and table placed within reach. pt stated that her son will pick her up tomorrow at ~ 10am . informed pt regarding caregiver training at ~ 10- 1030 am and pt agreed. pt stated that it is not possible to reach her son to confirm since son is working where there is no cell signal. Gait Assessment Gait Gait Assistance Required: Minimum Assistance Distance (Feet) 20 Able to Maintain Weight Bearing Status Yes During Gait Assistive Devices Assistive Device Gait Belt,Front Wheeled Walker Orthotic/Prosthetic Devices or Brace: No Gait Deviations General Gait Pattern Decreased Stride Length, Decreased Feet Clearance,Step- to Gait Factors Limiting Gait Function Factors Limiting Gait Function Decreased Activity Tolerance, Decreased Strength,Difficulty Following Directions,Limited Range of Motion,Pain,Poor Balance,Poor Safety Awareness PT-Balance Assessment Sitting Balance and Reactions Static Sitting Balance Ability Good Dynamic Sitting Balance Ability Good Standing Balance and Reactions Static Standing Balance Ability Fair Dynamic Standing Balance Ability Fair Device Used FWW M5 PT-IP Objective Assessments Start: 05/18/23 18:00 Freq: NEEDED Status: Active Protocol: Document 05/18/23 14:53 AB (Rec: 05/18/23 18:21 AB [id number]) Orientation Orientation/Cognition Level of Alertness Alert Orientation Name,Place,Situation Language Function Ability No Deficits Noted Safety Awareness Decreased Safety Awareness Memory Description No Deficits Noted Gross Range of Motion Lower Extremity ROM Assessment Left Impaired Impairments L knee flexion: ~ 50 deg L knee extension: ~ 15 deg less to 0 Strength Lower Extremity Strength Assessment Left Impaired Hip 4-/5 Knee 3+/5 Muscle Tone Muscle Tone WNL Yes M6 PT-IP Treatment Start: 05/18/23 18:00 Freq: NEEDED Status: Active Protocol: Document 05/18/23 14:53 AB (Rec: 05/18/23 18:21 AB [id number]) Physical Therapy Treatment Education Education Provided Precautions,Weight Bearing Status,Post-Op Packet,Safety M7 PT-IP Assessment and Plan Start: 05/18/23 18:00 Freq: NEEDED Status: Active Protocol: Document 05/18/23 14:53 AB (Rec: 05/18/23 18:21 AB [id number]) PT Summary Assessment and Plan Potential Rehabilitation Potential Fair Status of Condition at Evaluation Evolving Summary Impairments Pain,ROM,Strength,Balance, Coordination,Sensation,Tone, Cognition,Bed Mobility, Transfers,Gait,Activity Tolerance Assessment Summary pt is a 67 y/o F s/p L TKA POD 0. pt is WBAT. pt requiring min A with mobility using FWW. pt will likely progress during hospital stay. caregiver training tomorrow when son arrives ~ 10- 1030 am . will continue to assess progress. pt stated that she has outpt PT set up. Goals Bed Mobility Goal Independent Transfer Goal Independent,Front Wheeled Walker Gait Goal Independent,Front Wheel Walker Gait Distance 200 Days to Meet Goals 5 Frequency of Treatment Frequency Of Treatment Twice a Day Treatment Plan Physical Therapy Treatment Plan Bed Mobility Training,Transfer Training,Gait Training, Therapeutic Exercise,Balance Retraining,Post Op Education, Discharge Planning,Hot or Cold Pack,Neuromuscular Re-ed, Coordination Retraining,Manual Therapy Other Recommendations and Next Treatment caregiver trainign: 05/19 ~ Focus -1030 am Weight Bearing Status Weight Bearing Status Weight Bear as Tolerated Allowed Weight Bearing Amount (enter % LLE WBAT or #) (%) Recommendations To Nursing Amount of Assist Needed 1 Person Assist Discharge Recommendations PT Discharge Recommendations Home with Assistance,Home with 01/01 Assist Available, Outpatient PT Transportation Needs at Discharge Private Vehicle
[2023-05-18] MEDS: ONDANSETRON 4 MG/2 ML INJ IV (15:14)
[2023-05-18] MEDS: OXYCODONE IR 5 MG TABLET PO (15:34)
--- NOTE | 2023-05-18 18:17 | PM.PN.1 ---
Subjective Subjective Interval history: S: Pain well controlled. Mobilized with PT. Some nausea but no vomitting O: SILT L2-S1. Toes WWP, palpable DP pulse. Flexes/extends toes+ankle. Dressing CDI A: POD0 L TKA P: Change into normal clothes Family PT training tomorrow morning ASA 81 BID DC tomorrow morning WBAT F/U [employer] [facility] 2 weeks Exam Vital Signs (past 8 hours): - 05/18/23 10:25 05/18/23 10:30 05/18/23 10:35 Temperature 97.0 F L Pulse Rate 85 77 77 Respiratory Rate 16 16 16 Blood Pressure 159/92 H 140/77 131/92 H Pulse Oximetry 97 94 98 Oxygen Delivery Method Room Air Room Air Room Air Oxygen Flow Rate 05/18/23 10:36 05/18/23 10:41 05/18/23 10:46 Temperature Pulse Rate 81 79 73 Respiratory Rate 16 16 16 Blood Pressure 131/92 H 131/92 H 162/90 H Pulse Oximetry 98 98 94 Oxygen Delivery Method Room Air Room Air Room Air Oxygen Flow Rate 05/18/23 10:51 05/18/23 11:05 05/18/23 11:35 Temperature 97.3 F L 97.5 F L 97.8 F Pulse Rate 75 72 79 Respiratory Rate 17 16 16 Blood Pressure 159/96 H 140/88 128/89 Pulse Oximetry 98 97 94 Oxygen Delivery Method Room Air Oxygen Flow Rate 0 0 05/18/23 12:05 05/18/23 15:00 05/18/23 15:45 Temperature 97.7 F 97.7 F Pulse Rate 83 108 H 97 H Respiratory Rate 18 18 Blood Pressure 147/93 H 153/93 H 134/88 Pulse Oximetry 97 97 Oxygen Delivery Method Oxygen Flow Rate 0 0 Oxygen Delivery Method Room Air Oxygen Flow Rate 0 PFSH Medical History Anesthesia complication (08/16/22) Diverticulosis Varicose vein of leg Osteoporosis Sensitive skin Osteoarthritis Acid reflux HTN (hypertension) COVID-19 virus infection (~2020) Surgical History History of total right knee replacement (08/16/22) Hx of removal of cyst Social History household members: spouse Smoking Status: Former smoker alcohol intake: never Quality VTE Deep Vein Thrombosis/Pulmonary Embolism Present on Admission: No
[2023-05-18] MEDS: DOCUSATE 100 MG CAPSULE PO (21:21)
[2023-05-18] MEDS: ASPIRIN EC 81 MG TABLET PO (21:21)
[2023-05-19] MEDS: CEFAZOLIN 2 GM/100 ML PREMIX 100 ML IV (00:41)
[2023-05-19 04:07] VITALS: BP 125/80; PULSE 105; RESP 17; TEMP 36.3; O2SAT 97
[2023-05-19] MEDS: ACETAMINOPHEN 325 MG TABLET 650 MG PO ×2 (04:32→10:03)
[2023-05-19] MEDS: IBUPROFEN 600 MG TABLET PO ×2 (04:33→10:03)
[2023-05-19 05:32] LABS: Hematocrit 35.2 % (36-46); Hemoglobin 11.8 g/dL (12.0-16.0)
[2023-05-19 08:59] VITALS: BP 129/65; PULSE 103
[2023-05-19] MEDS: ASPIRIN EC 81 MG TABLET PO (08:59)
[2023-05-19] MEDS: LOSARTAN 25 MG TABLET PO (08:59)
[2023-05-19 10:00] VITALS: BP 129/65; PULSE 102; RESP 16; TEMP 36.2; O2SAT 98
--- NOTE | 2023-05-19 10:10 | PT.IPTN ---
Current Diagnoses Unilateral primary osteoarthritis, left knee (05/18/23) Surgery Performed Operation Date: 05/18/23 07:45 Actual Procedures p Total Knee Arthroplasty(Left) - Russ Ramirez MD Physical Therapy Treatment Note M2 PT-IP Current Condition Start: 05/18/23 18:00 Freq: NEEDED Status: Active Protocol: Document 05/18/23 14:53 AB (Rec: 05/18/23 18:21 AB [id number]) Physical Therapy Current Condition Current Condition Evaluation Date 05/18/23 Treatment Diagnosis s/p L TKA; difficulty in walking Onset Date 05/18/23 M3 PT-IP Subjective Start: 05/18/23 18:00 Freq: NEEDED Status: Active Protocol: Document 05/19/23 10:25 TS (Rec: 05/19/23 10:33 TS [id number]) Subjective Physical Therapy Visit Type Type Treatment Note Visit Start Time 10:10 Visit Stop Time 10:25 Total Visit Minutes 15 Number of CONDENSER WINDER Visits 1 Physical Therapy Visit Comments Patient Comments Pt found resting in chair, son present, agreeable to PT. Therapy Pain Assessment Pain When Pain Assessed At Rest Pain Present Pain Present Pain Reported M4 PT-IP Mobility and Gait Start: 05/18/23 18:00 Freq: NEEDED Status: Active Protocol: Document 05/19/23 10:25 TS (Rec: 05/19/23 10:33 TS [id number]) PT-Transfer Assessment Sit to and From Stand Sit to and from Stand Standby Assistance,Use of Upper Extremities Equipment Transfer Assistive Device Gait Belt,Front Wheeled Walker Orthotic/Prosthetic Devices or Brace: No Transfers Transfer Destination Toilet Transfer Technique ambulated Comments Mobility Comments Sit to stand SBA with FWW and pt with BUE support pushing form arms of chair, demonstrates good carryover. She ambulated in hallway ~100' SBA with step to gait, had no buckling or LOB. Pt was educated on post-op ex with intensity and frequency. Pt was left in chair, preparing for d/c. Gait Assessment Gait Gait Assistance Required: Standby Assistance Distance (Feet) 100 Able to Maintain Weight Bearing Status Yes During Gait Assistive Devices Assistive Device Gait Belt,Front Wheeled Walker Orthotic/Prosthetic Devices or Brace: No Gait Deviations General Gait Pattern Decreased Stride Length, Decreased Feet Clearance,Step- to Gait Factors Limiting Gait Function Factors Limiting Gait Function Decreased Activity Tolerance, Decreased Strength,Difficulty Following Directions,Limited Range of Motion,Pain,Poor Balance Comments Gait Comments See mobility comments PT-Balance Assessment Sitting Balance and Reactions Static Sitting Balance Ability Good Dynamic Sitting Balance Ability Good Standing Balance and Reactions Static Standing Balance Ability Good Dynamic Standing Balance Ability Fair Device Used FWW M5 PT-IP Objective Assessments Start: 05/18/23 18:00 Freq: NEEDED Status: Active Protocol: Document 05/18/23 14:53 AB (Rec: 05/18/23 18:21 AB [id number]) Orientation Orientation/Cognition Level of Alertness Alert Orientation Name,Place,Situation Language Function Ability No Deficits Noted Safety Awareness Decreased Safety Awareness Memory Description No Deficits Noted Gross Range of Motion Lower Extremity ROM Assessment Left Impaired Impairments L knee flexion: ~ 50 deg L knee extension: ~ 15 deg less to 0 Strength Lower Extremity Strength Assessment Left Impaired Hip 4-/5 Knee 3+/5 Muscle Tone Muscle Tone WNL Yes M6 PT-IP Treatment Start: 05/18/23 18:00 Freq: NEEDED Status: Active Protocol: Document 05/19/23 10:25 TS (Rec: 05/19/23 10:33 TS [id number]) Physical Therapy Treatment Education Education Provided Precautions,Weight Bearing Status,Post-Op Packet,Safety M7 PT-IP Assessment and Plan Start: 05/18/23 18:00 Freq: NEEDED Status: Active Protocol: Document 05/19/23 10:25 TS (Rec: 05/19/23 10:33 TS [id number]) PT Summary Assessment and Plan Potential Rehabilitation Potential Fair Summary Impairments Pain,ROM,Strength,Balance, Coordination,Sensation,Tone, Cognition,Bed Mobility, Transfers,Gait,Activity Tolerance Progress Towards Goals Progressing Toward Goals Assessment Summary Lisa is making good progress with her mobility. She is SBA for sit to stands with FWW and demonstrates good carryover of sequencing. She progressed her ambulation to ~100' SBA with step to gait, had no buckling or LOB. PT is recommending pt return home with assist and outpatient PT. Goals Bed Mobility Goal Independent Transfer Goal Independent,Front Wheeled Walker Gait Goal Independent,Front Wheel Walker Gait Distance 200 Days to Meet Goals 5 Frequency of Treatment Frequency Of Treatment Twice a Day Treatment Plan Physical Therapy Treatment Plan Bed Mobility Training,Transfer Training,Gait Training, Therapeutic Exercise,Balance Retraining,Post Op Education, Discharge Planning,Hot or Cold Pack,Neuromuscular Re-ed, Coordination Retraining,Manual Therapy Weight Bearing Status Weight Bearing Status Weight Bear as Tolerated Allowed Weight Bearing Amount (enter % LLE WBAT or #) (%) Recommendations To Nursing Amount of Assist Needed Standby Assistance Discharge Recommendations PT Discharge Recommendations Home with Assistance, Outpatient PT Transportation Needs at Discharge Private Vehicle
--- NOTE | 2023-05-19 10:17 | PM.DS.1 ---
History of Present Illness History of Present Illness Date Patient Seen: 05/19/23 Time Patient Seen: 10:17 Chief complaint: Left Total Knee Arthroplasty Narrative: Operative Date/Time/Diagnoses Date of procedure: 05/18/23 Pre-op diagnosis: Left knee arthritis Post-op diagnosis: same Procedure & Clinicians Procedure: Left total knee arthroplasty (CPT 15086) Same procedure as scheduled: Yes Surgeon: Russ Ramirez Resolution Specialist: Anais Davis Anesthesia Type: Spinal, Peripheral nerve block and Local Operative Notes Estimated Blood Loss (mL): 150 Tourniquet time (min): 75 Procedure in detail: Implants: Asuncion Persona [Medial Congruent] Total Knee Arthroplasty: - Size 6 narrow Cruciate Retaining Femoral Component - Size D Tibial Component with 14 mm x 30 mm stem extension - Size 14 [Medial Congruent] Polyethylene Insert - 32 mm Patella Discharge Providers Provider Discharge Date: 05/19/23 Primary care physician: GENNY Villela Consults: 05/18/23 06:00 Consult to Anesthesiology Routine Comment: Consulting Provider: Anesthesiologist Reason for consultation: Regional block for post operative pain control 05/18/23 10:52 Consult to Discharge Planning Routine Comment: Consult to Physical Therapy Evaluate & Treat Comment: Physician Instructions: postop TKA protocol Discharge provider: Anais Davis PA-C Summary Hospital Course Discharge Diagnosis: Left knee osteoarthrititis, s/p left total knee arthroplasty Hospital Course: Ms Hager's hospital course was unremarkable. On the morning of POD# 1, she was feeling well and wanted to go home. She was eating and voiding without difficulty. Pain was well-controlled with oral medication and ice. At the time of my visit, she had not yet been evaluated by PT but had been up and about without issue. Exam Vital Signs (past 8 hours): - 05/19/23 04:07 05/19/23 08:59 05/19/23 10:00 Temperature 97.4 F L 97.1 F L Pulse Rate 105 H 103 H 102 H Respiratory Rate 17 16 Blood Pressure 125/80 129/65 129/65 Pulse Oximetry 97 98 Oxygen Flow Rate 0 0 Oxygen Delivery Method Room Air Oxygen Flow Rate 0 Narrative Exam Narrative: 5/5 strength in hip flexors, quadriceps, hamstrings, DF, PF, EHL on left. Sensation to light touch intact throughout LLE. Calf soft, compressible, nontender. HINA wrap removed d/t discomfort; Aquacel dressing CDI. Objective Labs 05/19/23 04:40 Labs: Laboratory Results - last 24 hr 05/19/23 04:40 Hgb 11.8 L Hct 35.2 L PFSH Medical History Anesthesia complication (08/16/22) Diverticulosis Varicose vein of leg Osteoporosis Sensitive skin Osteoarthritis Acid reflux HTN (hypertension) COVID-19 virus infection (~2020) Surgical History History of total right knee replacement (08/16/22) Hx of removal of cyst Social History household members: spouse Smoking Status: Former smoker alcohol intake: never Discharge Assessment & Plan Assessment and Plan Assessment: Left knee osteoarthrititis, s/p left total knee arthroplasty Plan of Treatment: Discharge home after PT if PT agrees, multimodal pain control, pt has rxs at home, ASA BID for VTE prophylaxis, outpt PT, f/u in office as scheduled. Discharge Plan Discharge Plan Patient Disposition: Home Discharge orders & Medications Discharge Orders: Discharge (Order); Ordered 05/19/23 Ordered By: Anais Davis Prescriptions: Continued losartan 25 mg Tablet 25 mg PO DAILY acetaminophen 325 mg Tablet 650 mg PO Q6HR Qty: 60 0RF meloxicam 7.5 mg Tablet 7.5 mg PO QID PRN (Reason: Pain ) Follow up/Referrals: Charleen Taveras ARNP [Primary Care Provider] - Russ Ramirez MD [Physician] - As previously scheduled (Follow up with Cliff Pascal PA-C, on 05/30/2023 @ 1:10 pm at [facility] office in [place].) Diet/Activity/Treatments Diet: Diet as Tolerated Activity: Walk frequently! Cold/Heat Therapy: Ice machine as needed for pain, no more than 20 minutes at a time with at least 20 minutes off between sessions. Skin/Wound/Dressing Care Report to your healthcare provider any signs of infection, such as:: chills, fever, night sweats, unusual drainage and unusual redness Dressing: May remove HINA wrap and shower on 05/21/2023. Leave dressing in place until follow up in office. No bathing or otherwise soaking incision. Call the office if the dressing becomes saturated inside. Visit Report/Discharge Packet Instructions: DI for Knee Replacement, DI for Prescription Opioid Use Stand Alone Forms: Patient Portal/API, Surgery Discharge Discharge Data Primary Care Provider: Charleen Taveras Attending Provider: Russ Ramirez VTE Deep Vein Thrombosis/Pulmonary Embolism Present on Admission: No
--- NOTE | 2023-05-19 10:47 | CM.DANOTE ---
Patient is a 67 yo female who was admitted on 05/18/23 for LTKA. Pt has REG PPO for insurance and her PCP is Charleen Taveras. EMR was reviewed. Per Ortho, pt tolerated procedure well and tolerating diet, voiding independently, pain is controlled and to work with PT again today and then discharge home with no identified barriers to discharge. Per PT, completed CG training today and was able to ambulate 100 ft SBA and recommending safe d/c home with family assist and outpt PT. SW met bedside briefly with pt and family and explained role and pt confirms she lives in [facility] with her spouse, has local son, and her brother plans to come and stay with them for additional assist. Pt is active and independent with ADLs at baseline and does not use DME for ambulation although has a cane at home. Pt denies any hx of HH or SNF and does not anticipate any further needs at d/c. Pt has hx of RTKA earlier this year and remembers most of her precautions and feels set up for success. Plan: Patient to d/c home later today via family POV and outpt f/u and no further SW needs at this time. GYPSY Jackson Discharge Planning/Care Management CM Discharge Assessment Start: 05/19/23 10:44 Freq: Status: Active Protocol: Document 05/19/23 10:44 BF (Rec: 05/19/23 10:46 BF [id number]) Discharge Planning Assessment Assigned Internal Communications Intern GYPSY Jenkins DPOA/Assigned Designee Name spouse Advance Directives? Yes Advance Directives on File No History Provided By Patient,Family Member,Medical Record Has Patient been admitted in last 30 No days? Prior Living Arrangements House Household Members spouse Type of transporation used prior to Drives own vehicle admit Independent with ADL's Yes Is patient alert and oriented? Yes Caregiver for Another No Community Services used prior to Physical Therapy admission: DME Already Rented / Owned Cane Patient/Family Preference OP PT Therapy Barriers to Discharge No Discharge Plan Home Community Services Physical Therapy Transportation Arrangement Brother to provide transport Referrals Initiated None needed Whiteboard Updated in Patient Room with Yes name and ext. # of Internal Communications Intern Review Status In Process Please Provide Date Initial DC 05/19/23 Assessment Was Performed Next Review Type Continued Stay Review Pre-Anesthesia Assessment Start: 05/07/23 10:00 Freq: Status: Active Protocol: Document 11/27/23 10:00 [facility] (Rec: 05/07/23 10:29 [facility] [id number]) Pre-Anesthesia Assessment Preferred Name Lisa Patient Information Reviewed Via Phone Assessment Assessment Completed With Patient Diagnostic Results BMP/CMP,CBC,EKG Comment Outside labs/EKG scanned Primary Care Provider Charleen Taveras Comment PCP clearance form scanned Medical Clearance Received Yes Seen Specialist in Last 12 Months Yes Specialist Seen Orthopedist Primary Language Cuban Preferred Language Cuban Activity Director Required No Height 160.02 cm Weight 95.254 kg Body Mass Index (BMI) 37.2 Hearing Ability Normal Visual Assist Glasses Dentition Type Teeth, Natural Present,Teeth, Missing,Dental Implants Barriers to Learning None Hx Anesthesia Reactions Yes: I woke up during surgery , saying that hurts during RT TKA Hx Family Anesthesia Reaction No Hx Malignant Hyperthermia No Hx Blood Transfusions No Anesthesia Review Requested No Special Needs Tutor No alcohol intake never Smoking Status Former smoker how long ago did patient quit smoking Quit approx 25 years ago Substance Use Type does not use Pain Present Pain Reported Musculoskeletal Symptoms Abnormal Gait,Difficulty Walking,Joint Pain History of Falling (Recent or History of No ) Patient is completely paralyzed or No completely immobile Mental Status Oriented to own ability Is patient on oxygen? No Does patient have MARINELLI/SOB No Hx Sleep Apnea No Currently Taking a Beta Jass No Can You Climb a Flight of Stairs Without Yes SOB Hx Chest Pain No Hx SOB No Hx Syncope or Dizziness No Anti-Coagulant Therapy No Has a Auto Radio Mechanic No Cardiac Testing No Hx Pacemaker/ICD No Pacemaker Rep Required? No Cardiac Clearance Received Not Applicable Diet Type At Home Regular Dysphagia No Urinary Catheter Present No Hx Urinary Self Catheterization No Diabetes No Patient No Lactating No Hx Drug Resistant Organism No Presence of External or Internal Medical No Devices Received a COVID vaccine? Yes Received all doses? Yes Marital Status Lives With spouse Current Living Arrangements House Number of Floors (Floors) One Floor Number of Stairs To Enter/Railing? Ramp Support System Caregiver,Spouse Does the Patient Have Assistance After No: is disabled, Surgery caregiver will assist w/care at DC Patient Discharge Plan Description Return Home Comment Pt advised overnight length of stay per surgeon Feels Safe in Current Environment Yes Been Physically Hurt or Threatened By a No Person in Current Environment Do you have thoughts of harming yourself None or others? Are you currently considering suicide? No Do you have a plan to hurt yourself or No Plan others? Do You Have Any Spiritual Beliefs That No May Affect Your HC Choices? Do You Have Any Cultural Practices That No May Affect Your HC Choices? Comment Santino Who Can We Speak to About Patient's Care Family, friends Identifying Code for Release of Patient Declines to issue Information Health Care Proxy/Next of Kin Gonzalo (son) Sim (son) Aashish (brother-caregiver) Health Care Proxy Phone Number Gonzalo: [phone] Sim: [phone] Aashish: [phone] Emergency Contact Name Gonzalo Cruzson) Sim (son) Aashish (brother-caregiver) Emergency Contact Phone Number Gonzalo: [phone] Sim: [phone] Aashish: Advance Directives? Yes Advance Directives on File No Power of Director Medical Surgical Yes Power of Director Medical Surgical Name Gonzalo (son) Sim (son) Power of Director Medical Surgical Phone Number Gonzalo: [phone] Sim: [phone] PAC Instructions Do not shave/clip surgical site,Durable medical equipment ,Medications to take/avoid, Nasal antibiotic,No ETOH/ petroleum product on skin DOS, NPO,Pre-surgical wash,Sensory aids,Sturdy shoes/comfortable clothes,Do not bring valuables and remove jewelry
== END 2023-05-19 11:25 | disposition home or self-care (01) ==
LOC: OR 05:55 → AC 05:55
PROVIDERS: PCP Nurse Practitioner Family; Referring Provider Orthopaedic Surgery Adult Reconstructive Orthopaedic Surgery; Visit Provider Orthopaedic Surgery Adult Reconstructive Orthopaedic Surgery
PROC: 0SRD0JZ Replacement of Left Knee Joint with Synthetic Substitute, Open Approach (ICD-10-PCS; CPT 27447; principal; 2023-05-18 07:45)
DX: M17.12 Unilateral primary osteoarthritis, left knee (principal)
CPT/HCPCS: 27447; 36415; 73560; 85014; 85018; 97162; 97530; C1776; J0690; J1100; J2250; J2405; J2704; J3010